=== PATIENT | female | born 1975 | race Caucasian/White ===

== ENCOUNTER 2017-01-12 18:34 | Emergency (ER) | payer MEDICAID, OTHER ==
[~2017-01-12] VITALS: Ht 152.4 cm; Wt 63.0 kg
[2017-01-13 00:09] LABS: *AMPHETAMINES SCREEN URINE NEGATIVE (NEGATIVE); *BARBITURATES SCREEN URINE NEGATIVE (NEGATIVE); *BENZODIAZEPINES SCREEN URINE NEGATIVE (NEGATIVE); *COCAINE SCREEN URINE NEGATIVE (NEGATIVE); CANNABINOID URINE SCREEN NEGATIVE (NEGATIVE); METHADONE URINE SCREEN NEGATIVE (NEGATIVE); OPIATES URINE SCREEN NEGATIVE (NEGATIVE); PHENCYCLIDINE URINE SCREEN NEGATIVE (NEGATIVE)
[2017-01-13] MEDS ORDERED: IBUPROFEN 400MG TABLET PO ONE (00:30)
[2017-01-13 02:11] VITALS: BP 114/73
== END 2017-01-13 02:06 | disposition home or self-care (01) ==
LOC: ER 18:34
DX: M54.2 Cervicalgia (principal); R03.0 Elevated blood-pressure reading, without diagnosis of hypertension; J02.9 Acute pharyngitis, unspecified; Z88.0 Allergy status to penicillin; N89.8 Other specified noninflammatory disorders of vagina
CPT/HCPCS: 80305; 87210; 99284; Z7610